=== PATIENT | female | born 1955 | race Two or more races ===

== ENCOUNTER → 2017-11-17 11:30 | Outpatient (CLI) | payer SELFPAY ==
[2017-11-20 14:28] LABS: HPV Reflexed? NOT INDICATED
== END ==
PROVIDERS: Visit Provider Obstetrics & Gynecology
DX: Z12.4 Encounter for screening for malignant neoplasm of cervix (principal)
CPT/HCPCS: 88175; G0145

== ENCOUNTER → 2019-11-29 | Outpatient (CLI) | payer SELFPAY ==
[2019-12-02 20:12] LABS: HPV Reflexed? NOT INDICATED
== END | disposition home or self-care (01) ==
PROVIDERS: Visit Provider Obstetrics & Gynecology
DX: Z12.4 Encounter for screening for malignant neoplasm of cervix (principal)
CPT/HCPCS: 88175; G0145

== ENCOUNTER 2023-09-03 18:30 | Outpatient (RCR) | payer SELFPAY | END 2023-09-08 23:59 | LOC: NS 18:30 | DX: Z71.3 Dietary counseling and surveillance (principal) ==

== ENCOUNTER → 2023-12-19 | Outpatient (CLI) | payer MEDICARE, OTHER, SELFPAY ==
--- NOTE | 2023-12-19 11:04 | US_ITS ---
HISTORY: PMB. TECHNIQUE: Transabdominal and transvaginal pelvic ultrasound was performed with aleman scale , spectral Doppler, and color Doppler evaluation. 100 images. COMPARISON: None. FINDINGS: UTERUS: 5.8 x 2.7 x 3.8 cm. Mildly retroflexed. Mildly heterogeneous echotexture. ENDOMETRIAL THICKNESS: 3 mm in thickness. 2 x 3 x 5 mm echogenic focus with internal vascularity. OVARIES: Not well-visualized overlying bowel gas. Prominent vessels which appear thrombosed. FREE FLUID: None. URINARY BLADDER: Unremarkable at 329 cc. US/Pelvic w/ Transvaginal IMPRESSION: 5 mm echogenic lesion in the endometrial cavity, likely polyp. Recommend follow-up or workup to exclude other etiologies such as endometrial neoplasm. Nonvisualization of the ovaries. 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 Electronically Signed: Kimberly Cleveland MD at 12:18 EDT ,
== END | disposition home or self-care (01) ==
DX: N95.0 Postmenopausal bleeding (principal)
CPT/HCPCS: 76830; 76856